=== PATIENT | female | born 1995 ===

== ENCOUNTER 2021-04-06 07:34 | Outpatient (CLI) | payer OTHER ==
[2021-04-06 18:02] LABS: SARS-CoV-2 PCR by NAA Not Detected (NotDetected)
== END 2021-04-06 07:35 | disposition home or self-care (01) ==
LOC: CSHLAB 07:34
PROVIDERS: ATTEND Student in an Organized Health Care Education/Training Program
DX: Z01.812 Encounter for preprocedural laboratory examination (principal); Z20.822 Contact with and (suspected) exposure to COVID-19
CPT/HCPCS: U0003; U0005

== ENCOUNTER 2021-04-09 05:42 | Inpatient (IN) | payer OTHER ==
[2021-04-09] MEDS: Lactated Ringer's 1,000 ML IV SCH ×2 (06:30→07:30)
[2021-04-09] MEDS ORDERED: hydrALAZINE 20 MG/ML VIAL SLOW IVP PRN ×2 (06:31→11:36)
[2021-04-09] MEDS ORDERED: Bicitra 30 ML UDCUP PO PRN (06:31)
[2021-04-09] MEDS ORDERED: CEFAZOLIN 2 GM in Premix Bag 1 BAG IVPB SCH (06:31)
[2021-04-09] MEDS ORDERED: Famotidine/PF 20 mg/2ml Vial SLOW IVP PRN (06:31)
[2021-04-09] MEDS ORDERED: Ondansetron PF 4 MG/2 ML Vial IVP PRN ×3 (06:31→11:36)
[2021-04-09] MEDS ORDERED: Promethazine HCl 25 MG/ML VIAL IM PRN ×3 (06:31→11:36)
[2021-04-09 06:49] LABS: Hemoglobin 11.5 g/dL (12.0-15.5); Mean Corpuscular HGB CONC 31.4 g/dL (32.0-36.0); Mean Corpuscular Hemoglobin 28.2 pg (27.0-33.0); Mean Corpuscular Volume 89.7 fl (81.6-98.3); Mean Platelet Volume 10.6 fl (7.4-10.4); Platelet Count 251 10x3/uL (150-450); Red Blood Cell (RBC) Count 4.08 10x6/uL (3.90-5.03); White Blood Cell (WBC) Count 8.4 10x3/uL (3.5-10.5)
[2021-04-09 06:51] VITALS: BMI 26.6
[2021-04-09] MEDS ORDERED: Morphine PF 10 MG/10 ML VIAL ONE (06:59)
[2021-04-09] MEDS ORDERED: Ondansetron PF 4 MG/2 ML Vial ONE (07:01)
[2021-04-09] MEDS ORDERED: Dexamethasone 4 mg/ml Vial ONE (07:01)
[2021-04-09] MEDS ORDERED: Phenylephrine 40 MG/NS 250 ML 250 ML ONE (07:02)
[2021-04-09] MEDS ORDERED: Ketorolac Tromethamine 30 MG/ML VIAL ONE (07:02)
[2021-04-09] MEDS ORDERED: Oxytocin 10 UNITS/ML VIAL ONE ×2 (07:02→08:26)
[2021-04-09 07:05] LABS: ALT (SGPT) 44 U/L (8-55); AST (SGOT) 21 U/L (5-34); Albumin 3.3 g/dL (3.5-5.0); Alkaline Phosphatase 177 U/L (40-110); Anion Gap 14 mmol/L (10-20); BUN (Urea Nitrogen) 6 mg/dL (7.0-18.7); Bilirubin, Total 0.5 mg/dL (0.2-1.2); Calc. Creatinine Clearance 176 mL/min (70-130); Calcium 8.3 mg/dL (7.8-10.44); Carbon Dioxide 17 mmol/L (22-29); Chloride 109 mmol/L (98-107); Globulin 3.1 g/dL (2.4-3.5); Glucose 95 mg/dL (70-105); Potassium 4.1 mmol/L (3.5-5.1); Protein, Total 6.4 g/dL (6.0-8.3); Sodium 136 mmol/L (136-145)
[2021-04-09 07:20] LABS: Hep B Surf Ag Non-Reactive S/CO (NonReactive)
[2021-04-09 07:21] LABS: Syphilis Antibody Nonreactive (Nonreactive); Syphilis Antibody Index 0.05 S/CO (<1.00 Non-Reactive)
[2021-04-09 07:27] LABS: HBSAg Index 0.24 S/CO (0-0.99)
[2021-04-09] MEDS ORDERED: Erythromycin Base 0.5% Oint 1 GM TUBE ONE (08:21)
[2021-04-09] MEDS ORDERED: Phytonadione Neonatal 1 MG/0.5 ML AMP ONE (08:22)
[2021-04-09] MEDS ORDERED: Meperidine HCl/PF 25 MG/ML VIAL SLOW IVP PRN (08:31)
[2021-04-09] MEDS ORDERED: Promethazine HCl 25 MG SUPP PR PRN (08:31)
[2021-04-09] MEDS ORDERED: Naloxone HCl 0.4 mg/ml Vial IVP PRN ×2 (08:31)
[2021-04-09] MEDS ORDERED: Fentanyl 100 MCG/2 ML VIAL SLOW IVP PRN (08:31)
[2021-04-09] MEDS ORDERED: Hydrocerin (Eucerin) Cream 120 gm Jar TOP PRN (08:31)
[2021-04-09] MEDS ORDERED: Naloxone HCl 0.4 mg/ml Vial IV PRN (08:31)
[2021-04-09] MEDS ORDERED: Ondansetron HCl/PF 4 MG/2 ML Vial IVP PRN (08:31)
[2021-04-09] MEDS ORDERED: diphenhydrAMINE 50 MG/ML VIAL IVP PRN (08:31)
[2021-04-09] MEDS ORDERED: Ketorolac Tromethamine 30 MG/ML VIAL IVP SCH (08:45)
[2021-04-09] MEDS ORDERED: Communication Order-Pharmacy FS SCH (08:45)
[2021-04-09] MEDS ORDERED: Boostrix 0.5 ML (Tdap) VIAL IM ONE (11:36)
[2021-04-09] MEDS ORDERED: Simethicone Chewable 80 MG TAB PO PRN (11:36)
[2021-04-09] MEDS ORDERED: Lanolin Ointment 7 GM TUBE TOP PRN (11:36)
[2021-04-09] MEDS ORDERED: Bisacodyl 10 MG SUPP PR PRN (11:36)
[2021-04-09] MEDS ORDERED: diphenhydrAMINE 25 MG CAP PO PRN (11:36)
[2021-04-09] MEDS ORDERED: Prenatal Vitamin 1 TAB PO SCH (12:00)
[2021-04-09] MEDS ORDERED: Ferrous Sulfate 325 MG TAB PO SCH (12:00)
[2021-04-09] MEDS ORDERED: Docusate Calcium (SURFAK) 240 MG CAP PO SCH (12:00)
[2021-04-09] MEDS: Ketorolac Tromethamine 30 MG/ML VIAL IVP PRN (19:15)
[2021-04-09] MEDS ORDERED: Zolpidem Tartrate 5 MG TAB PO PRN (21:00)
[2021-04-09] MEDS ORDERED: HYDROcodone/Acetaminophen 5/325 mg Tablet PO PRN ×2 (21:00)
[2021-04-09] MEDS: Docusate Calcium (SURFAK) 240 MG CAP PO SCH (21:18)
[2021-04-10] MEDS: Ferrous Sulfate 325 MG TAB PO SCH ×2 (02:58→10:12)
[2021-04-10] MEDS: Ketorolac Tromethamine 30 MG/ML VIAL IVP PRN (04:19)
[2021-04-10 05:00] LABS: Hemoglobin 9.6 g/dL (12.0-15.5); Mean Corpuscular HGB CONC 31.2 g/dL (32.0-36.0); Mean Corpuscular Hemoglobin 28.2 pg (27.0-33.0); Mean Corpuscular Volume 90.6 fl (81.6-98.3); Mean Platelet Volume 10.6 fl (7.4-10.4); Platelet Count 210 10x3/uL (150-450); RBC Distribution Width 13.9 % (11.5-14.5); White Blood Cell (WBC) Count 9.9 10x3/uL (3.5-10.5)
[2021-04-10] MEDS ORDERED: Prenatal Vitamin 1 TAB PO SCH (09:00)
[2021-04-10] MEDS: Docusate Calcium (SURFAK) 240 MG CAP PO SCH (10:12)
[2021-04-10 13:03] VITALS: BP 97/50; TEMP 98
[2021-04-10] MEDS ORDERED: Ibuprofen 800 MG TAB PO SCH (14:00)
== END 2021-04-10 18:30 | disposition home or self-care (01) | DRG 788 ==
LOC: CSHLD 05:42 → CSHPED 12:51
PROVIDERS: ADMIT Student in an Organized Health Care Education/Training Program; ATTEND Student in an Organized Health Care Education/Training Program
PROC: 10D00Z1 Extraction of Products of Conception, Low, Open Approach (ICD-10-PCS; principal; 2021-04-09)
DX: O34.211 Maternal care for low transverse scar from previous cesarean delivery (principal); O24.420 Gestational diabetes mellitus in childbirth, diet controlled; Z3A.39 39 weeks gestation of pregnancy; Z37.0 Single live birth; O99.824 Streptococcus B carrier state complicating childbirth; O77.0 Labor and delivery complicated by meconium in amniotic fluid; O99.892 Other specified diseases and conditions complicating childbirth; N73.6 Female pelvic peritoneal adhesions (postinfective); O90.81 Anemia of the puerperium; D50.9 Iron deficiency anemia, unspecified
CPT/HCPCS: 36415; 51702; 80053; 85027; 86780; 86850; 86900; 86901; 87340; J1100; J1885; J2274; J2405; J2590; J7120; S0028